=== PATIENT | female | born 1960 | race Two or more races ===

== ENCOUNTER 2017-01-19 21:30 | Emergency (ER) | payer BC ==
[~2017-01-19] VITALS: Ht 160 cm; Wt 56.7 kg
--- NOTE | 2017-01-19 21:40 | NUR ---
PT AMBULATORY TO ER BED 7, PT C/O FEVER WITH COUGH X2 DAYS, TAKING THERAFLU, NO TYLENOL OR ADVIL. PT AOX4 RR EVEN AND UNLABORED. NO SOB NOTED. NAD NOTED. NO NVD AT THIS TIME. PT NOT DIAPHORETIC. PT GOWNED AND PLACED ON MONITOR WAITING FOR MD BOWEN.
[2017-01-19] MEDS ORDERED: ACETAMINOPHEN ES 500 MG TABLET ONE (21:41)
[2017-01-19] MEDS ORDERED: IBUPROFEN 400 MG TABLET ONE (21:41)
[2017-01-19] MEDS ORDERED: ACETAMINOPHEN ES 500 MG TABLET PO ONE (22:00)
[2017-01-19] MEDS ORDERED: IBUPROFEN 400 MG TABLET PO ONE (22:00)
[2017-01-19 23:08] VITALS: BP 148/81
--- NOTE | 2017-01-19 23:10 | NUR ---
ORAL TEMP 99.6, MD AWARE.
== END 2017-01-19 23:34 | disposition home or self-care (01) ==
LOC: ER 21:30
DX: J06.9 Acute upper respiratory infection, unspecified (principal)
CPT/HCPCS: A4606; Z7610

== ENCOUNTER 2017-04-18 04:56 | Emergency (ER) | payer BC ==
[~2017-04-18] VITALS: Ht 167.6 cm; Wt 68.0 kg
--- NOTE | 2017-04-18 05:10 | NUR ---
TO BED 7 A 56 YO FEMALE BIBHUSBAND AND PT C/O LEFT SIDED ABD PAIN WITH N/V X 1 HOUR PT DENIES DIARRHEA. VSS. AFEBRILE. NONDIAPHORETIC. GOWNED. INITIATED COMFORT MEASURES. AWAITING FOR ER MD BOWEN.
--- NOTE | 2017-04-18 05:15 | NUR ---
Dr Rowland at bedside for eval.
--- NOTE | 2017-04-18 05:20 | NUR ---
started a saline lock on the lac g 20, blood drawn and sent to lab.
[2017-04-18] MEDS ORDERED: ONDANSETRON HCL/PF 4 MG/2 ML VIAL ONE ×2 (05:23→06:45)
[2017-04-18] MEDS ORDERED: MORPHINE SULFATE INJ 4 MG/ML DISP.SYRIN ONE (05:23)
[2017-04-18 05:28] LABS: BASOPHILS % (AUTO) 0.3 % (0.0-2.0); EOSINOPHILS # (AUTO) 0.3 /CMM (0.0-0.7); EOSINOPHILS % (AUTO) 2.3 % (0.0-6.0); HEMATOCRIT 35 % (33-45); HEMOGLOBIN 12.1 g/dL (11.5-14.8); LYMPHOCYTES # (AUTO) 3.9 /CMM (0.8-4.8); LYMPHOCYTES % (AUTO) 28.7 % (20.0-44.0); MEAN CORPUSCULAR HEMOGLOBIN 33 PG (26.0-33.0); MEAN CORPUSCULAR HGB CONC 35 g/dl (31.0-36.0); MEAN CORPUSCULAR VOLUME 95 fL (82-100); MONOCYTES # (AUTO) 0.7 /CMM (0.1-1.30); MONOCYTES % (AUTO) 5.2 % (2.0-12.0); NEUTROPHILS # (AUTO) 8.5 /CMM (1.8-8.9); NEUTROPHILS % (AUTO) 63.5 % (43.0-81.0); PLATELET COUNT (AUTO) 418 /CMM (150-450); RDW COEFFICIENT OF VARIATION 13.9 (11.5-15.0); RED BLOOD CELL COUNT(AUTO) 3.65 MIL/uL (4.0-5.2); WHITE BLOOD COUNT (AUTO) 13.5 K/uL (4.3-11.0)
[2017-04-18] MEDS ORDERED: IV NS 0.9% 1,000 ML BAG IV ONE (05:30)
[2017-04-18] MEDS ORDERED: ONDANSETRON HCL/PF 4 MG/2 ML VIAL IVP ONE (05:30)
[2017-04-18] MEDS ORDERED: MORPHINE SULFATE INJ 2 MG/ML DISP.SYRIN IV ONE (05:30)
--- NOTE | 2017-04-18 05:32 | NUR ---
medicated patient as ordered by Dr Rowland.
[2017-04-18 05:44] LABS: CARBON DIOXIDE 23 mmol/L (21-32); CHLORIDE 104 mmol/L (98-107); CREATININE 1.1 mg/dL (0.6-1.3); GLUCOSE 116 mg/dL (74-106); POTASSIUM 3.6 mmol/L (3.5-5.1); SODIUM SERUM 139 mmol/L (136-145); UREA NITROGEN, BLOOD 22 mg/dL (7-18)
[2017-04-18 05:51] LABS: ALANINE AMINOTRANSFERASE 23 U/L (12-78); ALKALINE PHOSPHATASE 45 U/L (46-116); ASPARTATE AMINOTRANSFERASE 19 U/L (15-37); BILIRUBIN,DIRECT 0.1 mg/dL (0.0-0.2); BILIRUBIN,TOTAL 0.5 mg/dL (0.2-1.0); LIPASE 133 U/L (73-393); TOTAL PROTEIN, SERUM 7.7 g/dL (6.4-8.2)
[2017-04-18 05:53] LABS: TROPONIN I < 0.017 ng/mL (0.00-0.056)
[2017-04-18 06:13] LABS: APPEARANCE,URINE CLOUDY (CLEAR); PH,URINE 7.5 (5.0-8.0); PROTEIN,URINE NEGATIVE (NEGATIVE); UGLUCOSE NEGATIVE (NEGATIVE)
[2017-04-18 06:14] LABS: BILIRUBIN,URINE NEGATIVE (NEGATIVE); BLOOD, URINE 3+ Ery/uL (NEGATIVE); KETONES,URINE TRACE (NEGATIVE); LEUKOCYTE ESTERASE ,URINE NEGATIVE (NEGATIVE); NITRITE, URINE NEGATIVE (NEGATIVE); UROBILINOGEN,URINE 0.2 EU/dL (0.2)
[2017-04-18 06:19] LABS: COLOR,URINE RED (YELLOW)
[2017-04-18 06:23] LABS: BACTERIA,URINE None seen /HPF (None Seen); PREGNANCY TEST URINE QUAL NEGATIVE (NEGATIVE); RBC,URINE TOO NUMEROUS TO COUN /HPF (0-2); SQUAMOUS EPITHELIAL CELL,UR Few /HPF (None Seen); WBC,URINE 0-2 /HPF (0-3)
[2017-04-18] MEDS ORDERED: KETOROLAC TROMETHAMINE INJ 30 MG/ML VIAL ONE (06:37)
--- NOTE | 2017-04-18 06:57 | NUR ---
IV removed. Catheter intact and site benign. Pressure and 4x4 applied to site. No bleeding noted. Patient discharged to home in stable condition. Written and verbal after care instructions given. Patient verbalizes understanding of instruction. Patient is ambulatory with steady gait, accompanied by . No further complaints.
[2017-04-18 06:58] VITALS: BP 136/87
[2017-04-18] MEDS ORDERED: ONDANSETRON HCL/PF 4 MG/2 ML VIAL IV ONE (07:00)
[2017-04-18] MEDS ORDERED: KETOROLAC TROMETHAMINE INJ 30 MG/ML VIAL IV ONE (07:00)
== END 2017-04-18 06:59 | disposition home or self-care (01) ==
LOC: ER 04:57
DX: N13.2 Hydronephrosis with renal and ureteral calculous obstruction (principal)
CPT/HCPCS: 36415; 72128; 74176; 80048; 80076; 81001; 83690; 84484; 84703; 85025; 93005; 96361; 96374; 96375; 96376; 99285; A4606; J1885; J2270; J2405 ×2; J7030; 81000-TC; Z7610

== ENCOUNTER 2017-04-19 18:17 | Emergency (ER) | payer BC ==
[~2017-04-19] VITALS: Ht 157.5 cm; Wt 63.5 kg
[2017-04-19] MEDS ORDERED: IV NS 0.9% 1,000 ML BAG IV ONE (18:30)
[2017-04-19] MEDS ORDERED: HYDROMORPHONE INJ 2 MG/ML DISP.SYRIN IV ONE (18:30)
[2017-04-19] MEDS ORDERED: KETOROLAC TROMETHAMINE INJ 30 MG/ML VIAL IV ONE (18:30)
[2017-04-19] MEDS ORDERED: ONDANSETRON HCL/PF 4 MG/2 ML VIAL IVP ONE (18:30)
[2017-04-19] MEDS ORDERED: MAGNESIUM CITRATE 296 ML BOTTLE PO ONE (18:30)
[2017-04-19] MEDS ORDERED: KETOROLAC TROMETHAMINE INJ 30 MG/ML VIAL ONE (18:35)
[2017-04-19] MEDS ORDERED: ONDANSETRON HCL/PF 4 MG/2 ML VIAL ONE (18:36)
[2017-04-19] MEDS ORDERED: HYDROMORPHONE 1 MG/1 ML DISP.SYRIN ONE (18:36)
[2017-04-19] MEDS ORDERED: MAGNESIUM CITRATE 296 ML BOTTLE ONE (18:36)
--- NOTE | 2017-04-19 18:40 | NUR ---
PATIENT PRESENTS TO ER C/O SEVERE ABDOMINAL PAIN, STATING SHE HAS A KIDNEY STONE. PATIENT IS STATING SHE HAS NOT BEEN ABLE TO URINATE SINCE THIS AM. ALSO STATING SHE HAS HAD NO BOWEL MOVEMENT FOR 3 DAYS NOW. PATIENT IS A/OX 4. BREATHING EVEN AND UNLABORED. NO SOB. VITALS STABLE. SAFETY AND COMFORT MEASURES IN PLACE. AWAITING MD ORDERS.
[2017-04-19 18:54] LABS: BASOPHILS # (AUTO) 0.1 /CMM (0.0-0.2); BASOPHILS % (AUTO) 0.8 % (0.0-2.0); EOSINOPHILS # (AUTO) 0.1 /CMM (0.0-0.7); EOSINOPHILS % (AUTO) 0.7 % (0.0-6.0); HEMATOCRIT 35 % (33-45); LYMPHOCYTES # (AUTO) 1.6 /CMM (0.8-4.8); MEAN CORPUSCULAR HEMOGLOBIN 31 PG (26.0-33.0); MEAN CORPUSCULAR HGB CONC 34 g/dl (31.0-36.0); MEAN CORPUSCULAR VOLUME 92 fL (82-100); MONOCYTES % (AUTO) 5.7 % (2.0-12.0); NEUTROPHILS # (AUTO) 15.5 /CMM (1.8-8.9); NEUTROPHILS % (AUTO) 83.8 % (43.0-81.0); PLATELET COUNT (AUTO) 437 /CMM (150-450); RDW COEFFICIENT OF VARIATION 13.1 (11.5-15.0); RED BLOOD CELL COUNT(AUTO) 3.85 MIL/uL (4.0-5.2); WHITE BLOOD COUNT (AUTO) 18.3 K/uL (4.3-11.0)
[2017-04-19 18:57] LABS: CREATININE 1.3 mg/dL (0.6-1.3); POTASSIUM 4.1 mmol/L (3.5-5.1)
--- NOTE | 2017-04-19 19:03 | NUR ---
URINE OBTAINED VIA STRAIGHT CATH PER MD ORDERS.
[2017-04-19 19:09] LABS: APPEARANCE,URINE Clear (CLEAR); BILIRUBIN,URINE Negative (NEGATIVE); BLOOD, URINE Moderate Ery/uL (NEGATIVE); COLOR,URINE Yellow (YELLOW); KETONES,URINE 40 (NEGATIVE); LEUKOCYTE ESTERASE ,URINE Negative (NEGATIVE); NITRITE, URINE Negative (NEGATIVE); PROTEIN,URINE Negative (NEGATIVE); UGLUCOSE Negative (NEGATIVE); UROBILINOGEN,URINE 0.2 EU/dL (0.2)
[2017-04-19 19:38] LABS: BACTERIA,URINE Rare /HPF (None Seen); SQUAMOUS EPITHELIAL CELL,UR Few /HPF (None Seen); WBC,URINE NONE SEEN /HPF (0-3)
--- NOTE | 2017-04-19 19:47 | NUR ---
PT OK TO DISCHARGE PER DR MARTINEZ. IV removed. Catheter intact and site benign. Pressure and 4x4 applied to site. No bleeding noted.Patient discharged to home in stable condition. Written and verbal after care instructions given. Patient verbalizes understanding of instruction.Patient is awake and alert to self, day, and place. PT ambulatory with a steady gait.
[2017-04-19 19:49] VITALS: BP 126/79
== END 2017-04-19 19:50 | disposition home or self-care (01) ==
LOC: ER 18:20
DX: N23 Unspecified renal colic (principal); Z90.81 Acquired absence of spleen
CPT/HCPCS: 36415; 80048-TC; 81000-TC; 85025-TC; A4606; J1170; J1885; J2405; J7030; Z7610

== ENCOUNTER 2018-03-04 23:20 | Emergency (ER) | payer BC, OTHER ==
[~2018-03-04] VITALS: Ht 157.5 cm; Wt 63.0 kg
[2018-03-04] MEDS ORDERED: KETOROLAC TROMETHAMINE INJ 30 MG/ML VIAL ONE (23:53)
[2018-03-04] MEDS ORDERED: ONDANSETRON HCL/PF 4 MG/2 ML VIAL ONE (23:53)
[2018-03-05] MEDS ORDERED: ONDANSETRON HCL/PF 4 MG/2 ML VIAL IVP ONE
[2018-03-05] MEDS ORDERED: IV NS 0.9% 1,000 ML BAG IV ONE
[2018-03-05] MEDS ORDERED: KETOROLAC TROMETHAMINE INJ 30 MG/ML VIAL IV ONE
--- NOTE | 2018-03-05 00:01 | NUR ---
PT BB SELF FROM HOME C/C OF R FLANK PAIN RADIATING TO RUQ ABD X 1 DAY. -N/V/D. VSS. SKIN WNL. PT IS AAOX4. -DYSURIA. RESP EVEN AND UNLABORED. NO S/S OF ACUTE DISTRESS NOTED. PT PLACED ON CIRCULAR DISTRIBUTOR AND POX. PT SAFETY AND COMFORT MEASURESIN PLACE. AWAITING MD FOR EVAL. PT'S BEDSIDE
--- NOTE | 2018-03-05 00:04 | NUR ---
PT REFUSED MD GHANSHYAM MADE AWARE.
[2018-03-05 00:09] LABS: BASOPHILS % (AUTO) 0.4 % (0.0-2.0); EOSINOPHILS % (AUTO) 4.2 % (0.0-6.0); HEMATOCRIT 38 % (33-45); HEMOGLOBIN 12.6 g/dL (11.5-14.8); LYMPHOCYTES # (AUTO) 4.3 /CMM (0.8-4.8); LYMPHOCYTES % (AUTO) 42.9 % (20.0-44.0); MEAN CORPUSCULAR HGB CONC 33 g/dl (31.0-36.0); MEAN CORPUSCULAR VOLUME 95 fL (82-100); MONOCYTES % (AUTO) 9.9 % (2.0-12.0); NEUTROPHILS # (AUTO) 4.2 /CMM (1.8-8.9); NEUTROPHILS % (AUTO) 42.6 % (43.0-81.0); PLATELET COUNT (AUTO) 417 /CMM (150-450); RDW COEFFICIENT OF VARIATION 13.9 (11.5-15.0); RED BLOOD CELL COUNT(AUTO) 4.03 MIL/uL (4.0-5.2); WHITE BLOOD COUNT (AUTO) 9.9 K/uL (4.3-11.0)
[2018-03-05 00:15] LABS: APPEARANCE,URINE CLEAR (CLEAR); BILIRUBIN,URINE NEGATIVE (NEGATIVE); BLOOD, URINE TRACE Ery/uL (NEGATIVE); COLOR,URINE YELLOW (YELLOW); KETONES,URINE NEGATIVE (NEGATIVE); LEUKOCYTE ESTERASE ,URINE NEGATIVE (NEGATIVE); NITRITE, URINE NEGATIVE (NEGATIVE); PROTEIN,URINE NEGATIVE (NEGATIVE); UGLUCOSE NEGATIVE (NEGATIVE); UROBILINOGEN,URINE 0.2 EU/dL (0.2)
[2018-03-05 00:29] LABS: CALCIUM, SERUM 8.9 mg/dL (8.5-10.1); CREATININE 0.8 mg/dL (0.6-1.3); POTASSIUM 3.9 mmol/L (3.5-5.1)
[2018-03-05 00:33] LABS: ALBUMIN 3.7 g/dL (3.4-5.0); BILIRUBIN,DIRECT 0.1 mg/dL (0.0-0.2); BILIRUBIN,TOTAL 0.5 mg/dL (0.2-1.0); TOTAL PROTEIN, SERUM 8.1 g/dL (6.4-8.2)
[2018-03-05 00:40] LABS: BACTERIA,URINE Few /HPF (None Seen); MUCUS,URINE Few /LPF (None Seen); SQUAMOUS EPITHELIAL CELL,UR Few /HPF (None Seen); WBC,URINE 0-2 /HPF (0-3)
--- NOTE | 2018-03-05 01:46 | NUR ---
Patient discharged to home in stable condition. Written and verbal after care instructions given. Patient verbalizes understanding of instruction.IV removed. Catheter intact and site benign. Pressure and 4x4 applied to site. No bleeding noted. vss upon discharge
[2018-03-05 01:47] VITALS: BP 130/48
== END 2018-03-05 01:48 | disposition home or self-care (01) ==
LOC: ER 23:26
DX: N83.291 Other ovarian cyst, right side (principal)
CPT/HCPCS: 36415; 80048-TC; 80076-TC; 81000-TC; 85025-TC; A4606; J1885; J2405; J7030; Z7610

== ENCOUNTER 2018-07-12 01:09 | Emergency (ER) | payer OTHER ==
[~2018-07-12] VITALS: Ht 157.5 cm; Wt 64.4 kg
--- NOTE | 2018-07-12 01:15 | NUR ---
PT BIBSELF COMPLAINING OF MIDSTERNAL CHEST PAIN RADIATING TO LEFT ARM. PT ALSO COMPLAINING OF ABDOMINAL PAIN WITH MULTIPLE EPISODES OF VOMITTING AND DIARRHEA, AND LEFT ARM NUMBNESS. PT STATES SYMPTOMS BEGAN ABOUT 4 HOURS PRIOR TO ARRIVAL. PT IS AAOX4. VITAL SIGNS STABLE. SKIN WARM AND INTACT. PT PLACED IN GOWN AND ON CONTINUOUS HOUSING MANAGEMENT REPRESENTATIVE.
--- NOTE | 2018-07-12 01:25 | NUR ---
MD AT BEDSIDE FOR EVALUATION
--- NOTE | 2018-07-12 01:30 | NUR ---
IV INITIATED LEFT AC 18G. LABS DRAWN FROM SITE. FOOD CHEMIST AT BEDSIDE FOR COLLECTION. IV INTACT AND PATENT, PLACED ON SALINE LOCK
[2018-07-12] MEDS ORDERED: ONDANSETRON HCL/PF 4 MG/2 ML VIAL ONE (01:39)
[2018-07-12] MEDS ORDERED: ALPRAZOLAM 0.5 MG TABLET ONE (01:40)
[2018-07-12] MEDS ORDERED: ASPIRIN 81 MG TAB.CHEW ONE (01:40)
--- NOTE | 2018-07-12 01:49 | NUR ---
RADIOLOGY AT BEDSIDE FOR CXR
[2018-07-12 02:00] LABS: BASOPHILS # (AUTO) 0.2 /CMM (0.0-0.2); BASOPHILS % (AUTO) 0.9 % (0.0-2.0); EOSINOPHILS % (AUTO) 0.6 % (0.0-6.0); HEMATOCRIT 40 % (33-45); HEMOGLOBIN 13.3 g/dL (11.5-14.8); LYMPHOCYTES # (AUTO) 1.6 /CMM (0.8-4.8); LYMPHOCYTES % (AUTO) 6.7 % (20.0-44.0); MEAN CORPUSCULAR HGB CONC 33 g/dl (31.0-36.0); MEAN CORPUSCULAR VOLUME 93 fL (82-100); MONOCYTES # (AUTO) 1.4 /CMM (0.1-1.30); MONOCYTES % (AUTO) 6.2 % (2.0-12.0); NEUTROPHILS # (AUTO) 20.1 /CMM (1.8-8.9); NEUTROPHILS % (AUTO) 85.6 % (43.0-81.0); PLATELET COUNT (AUTO) 440 /CMM (150-450); WHITE BLOOD COUNT (AUTO) 23.4 K/uL (4.3-11.0)
[2018-07-12] MEDS ORDERED: ONDANSETRON HCL/PF 4 MG/2 ML VIAL IVP ONE (02:00)
[2018-07-12] MEDS ORDERED: ALPRAZOLAM 0.5 MG TABLET PO ONE (02:00)
[2018-07-12] MEDS ORDERED: ASPIRIN 81 MG TAB.CHEW PO ONE (02:00)
[2018-07-12 02:08] LABS: CALCIUM, SERUM 9.4 mg/dL (8.5-10.1); CARBON DIOXIDE 23 mmol/L (21-32); CHLORIDE 103 mmol/L (98-107); GLUCOSE 132 mg/dL (74-106); INR 0.97 (0.87-1.13); SODIUM SERUM 141 mmol/L (136-145); UREA NITROGEN, BLOOD 25 mg/dL (7-18)
[2018-07-12 02:16] LABS: TROPONIN I < 0.017 ng/mL (0.00-0.056)
[2018-07-12] MEDS ORDERED: IV NS 0.9% 1,000 ML BAG IV ONE ×2 (02:30→03:30)
--- NOTE | 2018-07-12 02:35 | NUR ---
URINE COLLECTED, CALLED LAB FOR POLE FRAMER MACHINE
--- NOTE | 2018-07-12 02:45 | NUR ---
CAD DETAILER AT BEDSIDE FOR BLOOD DRAW
[2018-07-12 02:58] LABS: APPEARANCE,URINE SL CLOUDY (CLEAR); BILIRUBIN,URINE NEGATIVE (NEGATIVE); BLOOD, URINE TRACE-INTA Ery/uL (NEGATIVE); COLOR,URINE YELLOW (YELLOW); KETONES,URINE 2+ (NEGATIVE); LEUKOCYTE ESTERASE ,URINE NEGATIVE (NEGATIVE); NITRITE, URINE NEGATIVE (NEGATIVE); PH,URINE 6.5 (5.0-8.0); PROTEIN,URINE NEGATIVE (NEGATIVE); UGLUCOSE NEGATIVE (NEGATIVE); UROBILINOGEN,URINE 0.2 EU/dL (0.2)
[2018-07-12] MEDS ORDERED: PIPERACILLIN /TAZOBACTAM 3.375 G in IV D5W 50 ML IV ONE (03:00)
[2018-07-12 03:03] LABS: BACTERIA,URINE Rare /HPF (None Seen); SQUAMOUS EPITHELIAL CELL,UR Few /HPF (None Seen); WBC,URINE 0-2 /HPF (0-3)
[2018-07-12] MEDS ORDERED: PIPERACILLIN /TAZOBACTAM 3.375 G VIAL IV ONE (03:06)
[2018-07-12 03:39] LABS: BILIRUBIN,DIRECT 0.1 mg/dL (0.0-0.2); BILIRUBIN,TOTAL 0.7 mg/dL (0.2-1.0)
--- NOTE | 2018-07-12 03:56 | NUR ---
Patient discharged to home in stable condition. Written and verbal after care instructions given. Patient verbalizes understanding of instruction. IV removed. Catheter intact and site benign. Pressure and 4x4 applied to site. No bleeding noted. Pt ambulatory with a steady gait. Pt left with
[2018-07-12 03:58] VITALS: BP 120/85
== END 2018-07-12 03:59 | disposition home or self-care (01) ==
LOC: ER 01:11
DX: K52.9 Noninfective gastroenteritis and colitis, unspecified (principal); E86.0 Dehydration; R07.89 Other chest pain
CPT/HCPCS: 36415; 71045; 80048; 81001; 82247; 82248; 83605 ×2; 84484; 85025; 85730; 87040 ×2; 87086; 93005; 96361; 96365; 96375; 99285; J2405; J2543; J7030 ×2; 81000-TC; A4606; J7060; Z7610

== ENCOUNTER 2023-10-30 16:12 | Emergency (ER) | payer MEDICAID, OTHER ==
[~2023-10-30] VITALS: Ht 157.5 cm; Wt 66.2 kg
[2023-10-30 17:25] VITALS: TEMP 98.4
[2023-10-30] MEDS ORDERED: KETOROLAC TROMETHAMINE 15 MG/ML VIAL ONE (17:59)
[2023-10-30] MEDS: IV NS 0.9% 1,000 ML BAG IV ONE (18:16)
[2023-10-30] MEDS: KETOROLAC TROMETHAMINE 15 MG/ML VIAL IV ONE (18:18)
[2023-10-30] MEDS ORDERED: ONDANSETRON HCL/PF 4 MG/2 ML VIAL ONE (18:19)
[2023-10-30] MEDS: ONDANSETRON HCL/PF 4 MG/2 ML VIAL IV ONE (18:22)
[2023-10-30 18:37] LABS: BASOPHILS # (AUTO) 0.1 K/uL (0.0-0.2); BASOPHILS % (AUTO) 0.9 % (0.0-2.0); EOSINOPHILS # (AUTO) 0.1 K/uL (0.0-0.7); EOSINOPHILS % (AUTO) 0.9 % (0.0-6.0); HEMATOCRIT 39 % (33-45); HEMOGLOBIN 12.7 g/dL (11.5-14.8); LYMPHOCYTES # (AUTO) 2.4 K/uL (0.8-4.8); LYMPHOCYTES % (AUTO) 14.7 % (20.0-44.0); MEAN CORPUSCULAR HEMOGLOBIN 30 PG (26.0-33.0); MEAN CORPUSCULAR HGB CONC 33 g/dl (31.0-36.0); MEAN CORPUSCULAR VOLUME 92 fL (82-100); MONOCYTES # (AUTO) 0.9 K/uL (0.1-1.30); MONOCYTES % (AUTO) 5.8 % (2.0-12.0); NEUTROPHILS # (AUTO) 12.7 K/uL (1.8-8.9); NEUTROPHILS % (AUTO) 77.7 % (43.0-81.0); PLATELET COUNT (AUTO) 444 K/uL (150-450); RED BLOOD CELL COUNT(AUTO) 4.18 MIL/uL (4.0-5.2); RED CELL DISTRIBUTION WIDTH 13.8 % (11.5-15.0); WHITE BLOOD COUNT (AUTO) 16.3 K/uL (4.3-11.0)
[2023-10-30 18:47] LABS: CALCIUM, SERUM 9.5 mg/dL (8.5-10.1); CREATININE 1.2 mg/dL (0.6-1.3)
[2023-10-30 18:53] LABS: ALBUMIN 3.9 g/dL (3.4-5.0); BILIRUBIN,DIRECT 0.1 mg/dL (0.0-0.2)
[2023-10-30 19:02] LABS: APPEARANCE,URINE SLIGHTLY CLOUDY (CLEAR); BILIRUBIN,URINE NEGATIVE (NEGATIVE); BLOOD, URINE 1+ Ery/uL (NEGATIVE); COLOR,URINE YELLOW (YELLOW); KETONES,URINE TRACE mg/dL (NEGATIVE); LEUKOCYTE ESTERASE ,URINE NEGATIVE (NEGATIVE); NITRITE, URINE NEGATIVE (NEGATIVE); PH,URINE 7.5 (5.0-8.0); PROTEIN,URINE NEGATIVE (NEGATIVE); UGLUCOSE NEGATIVE (NEGATIVE); UROBILINOGEN,URINE 0.2 EU/dL (0.2)
[2023-10-30 19:26] LABS: ANISOCYTOSIS 1+; LYMPHOCYTES % (MANUAL) 21 % (16-48); MONOCYTES % (MANUAL) 8 % (0-11.0); NEUTROPHILS % (MANUAL) 71 (42-76); PLATELET ESTIMATE ADEQUATE
[2023-10-30 19:29] LABS: ADD URINE CULTURE NO; BACTERIA,URINE None seen /HPF (None Seen); SQUAMOUS EPITHELIAL CELL,UR 0-2 /HPF (None Seen); URINE AMORPHOUS PHOSPHATES Many /HPF (None Seen); WBC,URINE 0-2 /HPF (0-3)
[2023-10-30] MEDS ORDERED: ACETAMINOPHEN ES 500 MG TABLET ONE (20:22)
[2023-10-30] MEDS ORDERED: TAMSULOSIN 0.4 MG CAP.SR.24H ONE (20:22)
[2023-10-30] MEDS: TAMSULOSIN 0.4 MG CAP.SR.24H PO ONE (20:23)
[2023-10-30] MEDS: ACETAMINOPHEN ES 500 MG TABLET PO ONE (20:23)
[2023-10-30] MEDS ORDERED: ONDA4TAB5 PO (20:31)
[2023-10-30] MEDS ORDERED: TAMS-12 PO (20:31)
[2023-10-30] MEDS ORDERED: HYDR-4303 PO (20:31)
[2023-10-30] MEDS ORDERED: ACET-2605 PO (20:31)
[2023-10-30] MEDS ORDERED: IBUP-1957 PO (20:31)
[2023-10-30 22:53] VITALS: BP 132/80; O2SAT 96
== END 2023-10-30 22:56 | disposition home or self-care (01) ==
LOC: ER 16:12
DX: N20.0 Calculus of kidney (principal); R11.0 Nausea
CPT/HCPCS: 99285; 74176; 96374; 96361; 96375; 85025; 80048; 83690; 80076; 81001; 36415; 85007; J2405; J7030; J1885